=== PATIENT | female | born 1995 | race Caucasian/White ===

== ENCOUNTER 2019-07-26 15:38 | Emergency (ER) | payer OTHER, SELFPAY ==
[2019-07-26 15:49] VITALS: PULSE 85; RESP 16; TEMP 36.7; O2SAT 100; BMI 25.2
--- NOTE | 2019-07-26 16:31 | ED.BACK ---
HPI - Back Pain/Injury <DO Kathy Heaton Last Filed: 07/27/19 07:17> General Chief Complaint: Back Pain/Injury Stated Complaint: possible kidney stones Time Seen by Provider: 07/26/19 15:44 Source: patient Mode of arrival: Ambulatory Limitations: no limitations History of Present Illness HPI Narrative: Patient is a 24-year-old female who presents of bright of complaints. She currently has some left flank pain which started last night. It comes and goes nonradiating she sometimes feels nauseous. She has a actually started a week ago it started in her right flank and radiating around to her abdomen. She says that has improved but now it is more on the left side. She has no painful frequent urination. No history of kidney stones. She denies any injury no pain radiating down her legs. No numbness or tingling. MD Complaint: back pain Location: left flank Related Data Allergies Allergy/AdvReac Type Severity Reaction Status Date / Time No Known Drug Allergies Allergy Verified 07/26/19 15:49 Review of Systems <DO Kathy Heaton Last Filed: 07/27/19 07:17> Review of Systems Narrative: GENERAL: Denies chills, fatigue, malaise, fever, sweats, travel HEENT: Denies sinus pain, ear pain, sore throat, difficulty swallowing, neck pain RESPIRATORY: Denies dyspnea, cough, wheezing, hemoptysis, sputum. CARDIOVASCULAR: Denies chest pain, palpitations, orthopnea, edema GASTROINTESTINAL: See HPI : See HPI MUSCULOSKELETAL: Denies weakness, joint pain, or bony pain SKIN: No rash, no erythema, no pruritus NEUROLOGIC: Denies weakness, dizziness, headache, numbness, change in speech, confusion PSYCHIATRIC: No concerning psychosocial issues. 12 point review of systems is negative except for those stated above and HPI Patient History <DO Kathy Heaton Last Filed: 07/27/19 07:17> Medical History Patient denies medical problems (Acute) Social History Smoking Status: Current every day smoker tobacco type: e-cigarettes and vaping Substance Use Type: does not use Exam <DO Kathy Heaton Last Filed: 07/27/19 07:17> Initial Vital Signs Initial Vital Signs: Vital Signs Temperature 98.1 F 07/26/19 15:49 Pulse Rate 85 07/26/19 15:49 Respiratory Rate 16 07/26/19 15:49 Pulse Oximetry 100 07/26/19 15:49 GENERAL: Well-appearing, well-nourished and in no acute distress. HEENT: Head atraumatic,EOMI, pupils reactive, face symmetric, moist mucous membranes CARDIOVASCULAR: Regular rate and rhythm without murmurs, rubs or gallops. RESPIRATORY: Breath sounds equal bilaterally, no wheezes rales or rhonchi. ABDOMEN: Soft, tender right upper quadrant pain no guarding or rebound positive Matias sign : Mild left CVA tenderness EXTREMITIES: Normal range of motion, no clubbing or edema. Neurovascularly intact NEUROLOGICAL: Alert and oriented x4.Normal gait and speech. Cranial nerves II through XII grossly intact. SKIN: Warm, dry, no laceration, no petechiae, no rashes or lesions. <Gabriela Metcalf PA-C - Last Filed: 07/26/19 20:44> Initial Vital Signs Initial Vital Signs: Vital Signs Temperature 98.1 F 07/26/19 15:49 Pulse Rate 85 07/26/19 15:49 Respiratory Rate 16 07/26/19 15:49 Pulse Oximetry 100 07/26/19 15:49 Course <Chantale Siegel DO - Last Filed: 07/27/19 07:17> Orders Ordered: Discontinued Medications Ketorolac Tromethamine (Toradol) 30 mg IV NOW ONE Stop: 07/26/19 16:40 Last Admin: 07/26/19 17:09 Dose: 30 mg Documented by: GAMAL Ondansetron HCl (Zofran) 4 mg IV NOW ONE Stop: 07/26/19 16:40 Last Admin: 07/26/19 17:09 Dose: 4 mg Documented by: GAMAL Vital Signs Vital signs: Vital Signs - 8 hr 07/26/19 15:49 07/26/19 17:15 07/26/19 17:30 Temperature 98.1 F Pulse Rate 85 78 78 Respiratory Rate 16 16 16 Blood Pressure [Left Arm] 118/82 113/74 Pulse Oximetry 100 99 100 07/26/19 18:30 Temperature Pulse Rate 83 Respiratory Rate 16 Blood Pressure [Left Arm] 112/80 Pulse Oximetry 99 <Gabriela Metcalf PA-C - Last Filed: 07/26/19 20:44> Orders Ordered: Discontinued Medications Ketorolac Tromethamine (Toradol) 30 mg IV NOW ONE Stop: 07/26/19 16:40 Last Admin: 07/26/19 17:09 Dose: 30 mg Documented by: MEISENB Ondansetron HCl (Zofran) 4 mg IV NOW ONE Stop: 07/26/19 16:40 Last Admin: 07/26/19 17:09 Dose: 4 mg Documented by: MEISENB Vital Signs Vital signs: Vital Signs - 8 hr 07/26/19 15:49 07/26/19 17:15 07/26/19 17:30 Temperature 98.1 F Pulse Rate 85 78 78 Respiratory Rate 16 16 16 Blood Pressure [Left Arm] 118/82 113/74 Pulse Oximetry 100 99 100 07/26/19 18:30 Temperature Pulse Rate 83 Respiratory Rate 16 Blood Pressure [Left Arm] 112/80 Pulse Oximetry 99 MDM - Back Pain/Injury <Chantale Siegel DO - Last Filed: 07/27/19 07:17> Lab Data Attestation: I reviewed the patient's lab results. Result diagrams: 07/26/19 17:05 07/26/19 17:05 Labs: Lab Results 07/26/19 07/26/19 Range/Units 17:05 17:05 WBC 7.7 (4.5-11.0) X10^3/uL RBC 4.42 (4.0-5.2) X10^6/uL Hgb 13.0 (12.0-16.0) g/dL Hct 38.8 (36-46) % MCV 87.8 (80-100) fL MCH 29.5 (26-34) PG MCHC 33.6 (30-36) % RDW 13.1 (11.6-14.8) % Plt Count 244 (150-400) X10^3/uL Neut % (Auto) 51.3 (50-75) % Lymph % (Auto) 36.9 (25-40) % Mckinley % (Auto) 7.4 (3-14) % Eos % (Auto) 3.8 (2-4) % Baso % (Auto) 0.6 (0-2) % Neut # (Auto) 4000 (6996-5610) /uL Lymph # (Auto) 2900 (1414-5859) /uL Mckinley # (Auto) 600 (0-900) /uL Eos # (Auto) 300 (0-450) /uL Baso # (Auto) 0 (0-100) /uL Sodium 138 (137-145) mmol/L Potassium 3.7 (3.4-5.1) mmol/L Chloride 102 (98-107) mmol/L Carbon Dioxide 26 (22-32) mmol/L BUN 11 (7-17) mg/dL Creatinine 0.80 (0.52-1.04) mg/dL Estimated GFR > 60.0 (>60) mL/min BUN/Creatinine Ratio 13.8 (6-22) Glucose 89 (70-100) mg/dL Calcium 9.5 (8.4-10.2) mg/dL Total Bilirubin 0.5 (0.2-1.3) mg/dL AST 25 (14-36) IU/L ALT 14 (<35) IU/L Alkaline Phosphatase 71 (38-126) U/L Total Protein 8.1 (6.3-8.2) g/dL Albumin 4.7 (3.5-5.0) g/dL Globulin 3.4 (1.7-4.1) g/dL Albumin/Globulin Ratio 1.4 (1.0-2.8) Lipase 67 (23-300) U/L Point of Care Testing Test Results Negative Urine Dip Bedside Urine Glucose Negative Bedside Urine Bilirubin - Negative Bedside Urine Ketone - Negative Urine Specific [place] 1.010 Bedside Urine Occult Blood + Bedside Urine pH 7.0 Bedside Urine Protein - Negative Bedside Urine Urobilinogen - Negative Bedside Urine Nitrite - Negative Bedside Urine Leukocytes - Negative Esterase Imaging Data CT scan - abdomen: Radiologist's impression: PROCEDURE: CT KIDNEY URETER BLADDER (KUB) INDICATIONS: left flank pain TECHNIQUE: Noncontrast 5 mm thick sections acquired from the diaphragms to the symphysis. 5 mm thick coronal and sagittal reformats were then performed. For radiation dose reduction, the following was used: automated exposure control, adjustment of mA and/or kV according to patient size. COMPARISON: None. FINDINGS: Image quality: Excellent. Lung bases: Lung bases are clear. Heart size is normal. Urinary system: Both kidneys are normal in size. No kidney stones. No hydronephrosis or perinephric fat stranding. Both ureters appear non-dilated throughout their expected courses. Bladder wall thickness is normal; no calcified bladder stones. Other solid organs: Liver is normal in size. Gallbladder appears normal. Pancreas is normal in contours. Spleen is normal in size. No adrenal nodules. Peritoneum and bowel: Unenhanced bowel loops demonstrate normal wall thickness and caliber. No free fluid or air. Nodes and vessels: No retroperitoneal or mesenteric adenopathy by size criteria. Aorta and inferior vena cava are normal in caliber. Abdominal wall: No ventral hernias. Pelvis: No free pelvic fluid. No inguinal hernias or adenopathy. Bones: No suspicious bony lesions. No vertebral body compression fractures. . IMPRESSION: Normal for age, source of left sided reported flank pain is not identified. Dictated by: Rolando Mora M.D. on 07/26/2019 at 17:01 US - abdomen: Radiologist's impression: PROCEDURE: US ABDOMEN LIMITED INDICATIONS: RIGHT UPPER QUADRANT PAIN TECHNIQUE: Real-time scanning was performed of the abdominal and retroperitoneal organs, with image documentation. COMPARISON: CT KUB 07/26/2019. FINDINGS: Liver: Liver is normal in size and homogeneous in echotexture. Right anterior hepatic hyperechoic focus measuring 0.5 x 0.4 x 0.4 cm. Gallbladder: Nondilated. No stones or sludge. Normal gallbladder wall thickness. No pericholecystic fluid. Negative sonographic Matias's sign. Biliary ducts: Intrahepatic bile ducts are non-dilated. Extrahepatic bile duct caliber measures 3 mm. Normal is 6-7 mm or less in diameter, or 10 mm or less post-cholecystectomy. Pancreas: Visualized portions of the pancreas are sonographically normal. Spleen: Spleen is normal in size and homogeneous in echotexture. Right kidney: No right kidney hydronephrosis. IMPRESSION: 1. No acute cholecystitis. No gallstones. 2. Echogenic focus in the right lobe liver measuring 5 mm. This most likely represents a benign hemangioma. However, this is incompletely characterized on this exam. This can be further evaluated with liver MRI or multiphase liver CT or followed up in one year with ultrasound. Dictated by: Kirit Hayes M.D. on 07/26/2019 at 19:17 MDM Narrative Medical decision making narrative: No cause of patient's pain is identified. No UTI no kidney stone or gallbladder issue. patient feels better after toradol. feels able to go home. <Gabriela Metcalf PA-C - Last Filed: 07/26/19 20:44> Lab Data Labs: Lab Results 07/26/19 07/26/19 Range/Units 17:05 17:05 WBC 7.7 (4.5-11.0) X10^3/uL RBC 4.42 (4.0-5.2) X10^6/uL Hgb 13.0 (12.0-16.0) g/dL Hct 38.8 (36-46) % MCV 87.8 (80-100) fL MCH 29.5 (26-34) PG MCHC 33.6 (30-36) % RDW 13.1 (11.6-14.8) % Plt Count 244 (150-400) X10^3/uL Neut % (Auto) 51.3 (50-75) % Lymph % (Auto) 36.9 (25-40) % Mckinley % (Auto) 7.4 (3-14) % Eos % (Auto) 3.8 (2-4) % Baso % (Auto) 0.6 (0-2) % Neut # (Auto) 4000 (6779-8438) /uL Lymph # (Auto) 2900 (2757-7050) /uL Mckinley # (Auto) 600 (0-900) /uL Eos # (Auto) 300 (0-450) /uL Baso # (Auto) 0 (0-100) /uL Sodium 138 (137-145) mmol/L Potassium 3.7 (3.4-5.1) mmol/L Chloride 102 (98-107) mmol/L Carbon Dioxide 26 (22-32) mmol/L BUN 11 (7-17) mg/dL Creatinine 0.80 (0.52-1.04) mg/dL Estimated GFR > 60.0 (>60) mL/min BUN/Creatinine Ratio 13.8 (6-22) Glucose 89 (70-100) mg/dL Calcium 9.5 (8.4-10.2) mg/dL Total Bilirubin 0.5 (0.2-1.3) mg/dL AST 25 (14-36) IU/L ALT 14 (<35) IU/L Alkaline Phosphatase 71 (38-126) U/L Total Protein 8.1 (6.3-8.2) g/dL Albumin 4.7 (3.5-5.0) g/dL Globulin 3.4 (1.7-4.1) g/dL Albumin/Globulin Ratio 1.4 (1.0-2.8) Lipase 67 (23-300) U/L Point of Care Testing Test Results Negative Urine Dip Bedside Urine Glucose Negative Bedside Urine Bilirubin - Negative Bedside Urine Ketone - Negative Urine Specific [place] 1.010 Bedside Urine Occult Blood + Bedside Urine pH 7.0 Bedside Urine Protein - Negative Bedside Urine Urobilinogen - Negative Bedside Urine Nitrite - Negative Bedside Urine Leukocytes - Negative Esterase Discharge Plan Departure Patient Disposition: Home Clinical Impression: Back pain Qualifiers: Back pain location: low back pain Chronicity: acute Back pain laterality: left Sciatica presence: without sciatica Qualified Code(s): M54.5 - Low back pain Discharge Date/Time: 07/26/19 18:35 Activity Restrictions/Additional Instructions: *You have been diagnosed with back pain *What to do: Blood work CT scan and ultrasound today do not show cause of ear pain. No kidney stone is identified no sign of UTI or bladder infection. Gallbladder is also reassuring. *Continue to take medications as directed Motrin 800 mg every 6-8 hours if needed for pain *Follow up with your primary care provider in 2-3 days *Return to ER if you should have increasing pain with numbness tingling persistent vomiting fevers chills or any new, worsening or concerning symptoms Referrals: [facility] [Provider Group]
--- NOTE | 2019-07-26 16:38 | DI.US.S_ITS ---
PROCEDURE: US ABDOMEN LIMITED INDICATIONS: RIGHT UPPER QUADRANT PAIN TECHNIQUE: Real-time scanning was performed of the abdominal and retroperitoneal organs, with image documentation. COMPARISON: CT KUB 07/26/2019. FINDINGS: Liver: Liver is normal in size and homogeneous in echotexture. Right anterior hepatic hyperechoic focus measuring 0.5 x 0.4 x 0.4 cm. Gallbladder: Nondilated. No stones or sludge. Normal gallbladder wall thickness. No pericholecystic fluid. Negative sonographic Matias's sign. Biliary ducts: Intrahepatic bile ducts are non-dilated. Extrahepatic bile duct caliber measures 3 mm. Normal is 6-7 mm or less in diameter, or 10 mm or less post-cholecystectomy. Pancreas: Visualized portions of the pancreas are sonographically normal. Spleen: Spleen is normal in size and homogeneous in echotexture. Right kidney: No right kidney hydronephrosis. IMPRESSION: 1. No acute cholecystitis. No gallstones. 2. Echogenic focus in the right lobe liver measuring 5 mm. This most likely represents a benign hemangioma. However, this is incompletely characterized on this exam. This can be further evaluated with liver MRI or multiphase liver CT or followed up in one year with ultrasound. Dictated by: Kirit Hayes M.D. on 07/26/2019 at 19:17 Approved by: Kirit Hayes M.D. on 07/26/2019 at 19:22
--- NOTE | 2019-07-26 16:38 | DI.CT.S_ITS ---
PROCEDURE: CT KIDNEY URETER BLADDER (KUB) INDICATIONS: left flank pain TECHNIQUE: Noncontrast 5 mm thick sections acquired from the diaphragms to the symphysis. 5 mm thick coronal and sagittal reformats were then performed. For radiation dose reduction, the following was used: automated exposure control, adjustment of mA and/or kV according to patient size. COMPARISON: None. FINDINGS: Image quality: Excellent. Lung bases: Lung bases are clear. Heart size is normal. Urinary system: Both kidneys are normal in size. No kidney stones. No hydronephrosis or perinephric fat stranding. Both ureters appear non-dilated throughout their expected courses. Bladder wall thickness is normal; no calcified bladder stones. Other solid organs: Liver is normal in size. Gallbladder appears normal. Pancreas is normal in contours. Spleen is normal in size. No adrenal nodules. Peritoneum and bowel: Unenhanced bowel loops demonstrate normal wall thickness and caliber. No free fluid or air. Nodes and vessels: No retroperitoneal or mesenteric adenopathy by size criteria. Aorta and inferior vena cava are normal in caliber. Abdominal wall: No ventral hernias. Pelvis: No free pelvic fluid. No inguinal hernias or adenopathy. Bones: No suspicious bony lesions. No vertebral body compression fractures. . IMPRESSION: Normal for age, source of left sided reported flank pain is not identified. Dictated by: Rolando Mora M.D. on 07/26/2019 at 17:01 Approved by: Rolando Mora M.D. on 07/26/2019 at 17:04
[2019-07-26] MEDS: KETOROLAC 60 MG/2 ML VIAL 30 MG IV (17:09)
[2019-07-26] MEDS: ONDANSETRON 4 MG/2 ML INJ IV (17:09)
[2019-07-26 17:12] LABS: Add Manual Diff / Slide Review NO; Basophils Absolute Auto 0 /uL (0-100); Basophils Percent Auto 0.6 % (0-2); Eosinophils Absolute Auto 300 /uL (0-450); Eosinophils Percent Auto 3.8 % (2-4); Hematocrit 38.8 % (36-46); Lymphocytes Absolute Auto 2900 /uL (1100-4500); Lymphocytes Percent Auto 36.9 % (25-40); Mean Corpuscular HGB Conc 33.6 % (30-36); Mean Corpuscular Hemoglobin 29.5 PG (26-34); Mean Corpuscular Volume 87.8 fL (80-100); Monocytes Absolute Auto 600 /uL (0-900); Monocytes Percent Auto 7.4 % (3-14); Neutrophils Absolute Auto 4000 /uL (1500-7000); Neutrophils Percent Auto 51.3 % (50-75); Platelet Count 244 X10^3/uL (150-400); Red Blood Cell Count 4.42 X10^6/uL (4.0-5.2); Red Cell Distribution Width 13.1 % (11.6-14.8); White Blood Cell Count 7.7 X10^3/uL (4.5-11.0)
--- NOTE | 2019-07-26 17:14 | PC.NURSE ---
pt report left flank pain for one week, hx of kidney stones a year ago. denies injury,trauma, denies fever,vomiting, +decrease in appetite.
[2019-07-26 17:15] VITALS: BP 118/82; PULSE 78; RESP 16; O2SAT 99
--- NOTE | 2019-07-26 17:15 | PC.NURSE ---
making good eye contact, skin warm dry pink, moving all ext
[2019-07-26 17:27] LABS: Alanine Aminotransferase 14 IU/L (<35); Albumin 4.7 g/dL (3.5-5.0); Albumin Globulin Ratio 1.4 (1.0-2.8); Alkaline Phosphatase 71 U/L (38-126); Aspartate Aminotransferase 25 IU/L (14-36); BUN Creatinine Ratio 13.8 (6-22); Bilirubin Total 0.5 mg/dL (0.2-1.3); Blood Urea Nitrogen 11 mg/dL (7-17); Calcium 9.5 mg/dL (8.4-10.2); Carbon Dioxide 26 mmol/L (22-32); Chloride 102 mmol/L (98-107); Estimated Glomerular Filt Rate > 60.0 mL/min (>60); Globulin 3.4 g/dL (1.7-4.1); Glucose 89 mg/dL (70-100); HEMOLYSIS < 15 (0-50); Lipase 67 U/L (23-300); Potassium 3.7 mmol/L (3.4-5.1); Sodium 138 mmol/L (137-145); Total Protein 8.1 g/dL (6.3-8.2)
[2019-07-26 17:30] VITALS: BP 113/74; PULSE 78; RESP 16; O2SAT 100
[2019-07-26 18:30] VITALS: BP 112/80; BP 116/73; PULSE 80; PULSE 83; RESP 16; O2SAT 99
== END 2019-07-26 18:35 | disposition home or self-care (01) ==
PROVIDERS: Emergency Provider Emergency Medicine
DX: M54.5 Low back pain (principal); R10.11 Right upper quadrant pain
CPT/HCPCS: 36415; 74176; 76705; 80053; 81003; 81025; 83690; 85025; 96374; 96375; 99283; 99284; J1885; J2405

== ENCOUNTER 2021-01-31 02:16 | Emergency (ER) | payer OTHER, SELFPAY ==
[2021-01-31 02:17] VITALS: BP 113/73; PULSE 94; RESP 18; TEMP 36.9; O2SAT 100; BMI 25.6
--- NOTE | 2021-01-31 02:21 | DI.CT.S_ITS ---
PROCEDURE: CT ABDOMEN PELVIS W CON INDICATIONS: right sided abdominal pain TECHNIQUE: After the administration of intravenous contrast, 5 mm thick sections acquired from the diaphragm to the symphysis. 5 mm coronal and sagittal reformats were acquired. For radiation dose reduction, the following was used: automated exposure control, adjustment of mA and/or kV according to patient size. COMPARISON: [facility], US, US ABDOMEN LIMITED, 07/26/2019, 18:02. [facility], CT, CT KIDNEY URETER BLADDER (KUB), 07/26/2019, 16:44. FINDINGS: Image quality: Excellent. ABDOMEN: Lung bases: Lung bases are clear. Heart size is normal. Solid organs: Liver is normal in size and enhancement. Gallbladder wall is not thickened. Biliary system is non dilated. Pancreas enhances normally. Spleen is normal in size and enhancement. No adrenal nodules. Kidneys demonstrate normal size and enhancement, without hydronephrosis. Peritoneum and bowel: In this patient with this given history, scrutiny is given to the appendix. The appendix is normal, as seen on series 2, image 61. No focal right lower quadrant inflammatory changes are seen. Bowel loops demonstrate normal wall thickness and caliber. No free fluid or air. Nodes and vessels: No retroperitoneal or mesenteric adenopathy by size criteria. Aorta and inferior vena cava are normal in size. Miscellaneous: No ventral hernias. PELVIS: Genitourinary: Bladder wall thickness is normal. The uterus appears normal for age. No adnexal masses are seen. Physiologic appearing cystic changes can be seen involving the adnexal regions. A small amount of free pelvic fluid is seen, which is considered to be within physiologic limits. Miscellaneous: No inguinal hernias or adenopathy. Bones: No suspicious bony lesions. No vertebral body compression fractures. IMPRESSION: Normal appendix. Cystic changes can be seen of the ovaries, with a small amount of fluid seen within the pelvis. These findings are considered to be within physiologic limits. If it would be helpful for clinical management decision making, please consider a dedicated pelvic ultrasound for further evaluation. Note: No significant discrepancy from the preliminary report. Dictated by: Darrell Aguilera M.D. on 01/31/2021 at 10:03 Approved by: Darrell Aguilera M.D. on 01/31/2021 at 10:05
[2021-01-31 02:30] VITALS: BP 113/77; PULSE 95; RESP 16; O2SAT 99
[2021-01-31] MEDS: ONDANSETRON 4 MG/2 ML INJ IV (02:38)
[2021-01-31] MEDS: SODIUM CHLORIDE 0.9% 1,000 ML 1000 ML IV (02:39)
--- NOTE | 2021-01-31 02:55 | ED.ABDPAIN ---
HPI - Abdominal Pain General Chief Complaint: Abdominal Pain Stated Complaint: Right abdominal pain / Vomiting Time Seen by Provider: 01/31/21 02:20 Source: patient and EMS Mode of arrival: EMS Limitations: no limitations History of Present Illness HPI narrative: The patient is a 25-year-old female who presents with right-sided abdominal pain and nausea and vomiting. She states that she has had this pain in the past she has had an MRI ultrasound and x-ray but not a CT. She went out drinking where she had 5 vodka and Red Bulls which is a little abnormal for her. She went home and started vomiting however she had intense right-sided pain immediately after that requiring a closed with buried would what. It about she received Zofran and morphine which does seem to help some. She is still feeling slightly nauseated but overall a little bit better. She denies any marijuana use or daily alcohol use. MD complaint: abdominal pain Pain Consistency: intermittent Location: RLQ Quality: cramping and stabbing Radiation: none Migration to: no migration Related Data Allergies Allergy/AdvReac Type Severity Reaction Status Date / Time No Known Drug Allergies Allergy Verified 07/26/19 15:49 Review of Systems Review of Systems Narrative: GENERAL: Denies chills, fatigue, malaise, fever, sweats, travel HEENT: Denies sinus pain, ear pain, sore throat, difficulty swallowing, neck pain RESPIRATORY: Denies dyspnea, cough, wheezing, hemoptysis, sputum. CARDIOVASCULAR: Denies chest pain, palpitations, orthopnea, edema GASTROINTESTINAL: See HPI : Denies dysuria, frequency, incontinence, hematuria, urinary retention, flank pain. MUSCULOSKELETAL: Denies weakness, joint pain, or bony pain SKIN: No rash, no erythema, no pruritus NEUROLOGIC: Denies weakness, dizziness, headache, numbness, change in speech, confusion PSYCHIATRIC: No concerning psychosocial issues. 12 point review of systems is negative except for those stated above and HPI Patient History Medical History (Updated 01/31/21 @ 04:13 by Chantale Siegel DO) Patient denies medical problems Social History Smoking Status: Current every day smoker Smoking Status: Current every day smoker tobacco type: e-cigarettes and vaping alcohol intake frequency: a few times a week Substance Use Type: does not use Exam Initial Vital Signs Initial Vital Signs: Vital Signs Temperature 98.4 F 01/31/21 02:17 Pulse Rate 94 H 01/31/21 02:17 Respiratory Rate 18 01/31/21 02:17 Blood Pressure 113/73 01/31/21 02:17 Pulse Oximetry 100 01/31/21 02:17 GENERAL: 25-year-old female drowsy responding to questions commands and in no acute distress. HEENT: Head atraumatic,EOMI, pupils reactive, face symmetric, moist mucous membranes CARDIOVASCULAR: Regular rate and rhythm without murmurs, rubs or gallops. RESPIRATORY: Breath sounds equal bilaterally, no wheezes rales or rhonchi. ABDOMEN: Soft, nontender. Normoactive bowel sounds all 4 quadrants. No guarding or rebound. : No CVA tenderness EXTREMITIES: Normal range of motion, no clubbing or edema. Neurovascularly intact NEUROLOGICAL: Alert and oriented x4.Normal gait and speech. SKIN: Warm, dry, no laceration, no petechiae, no rashes or lesions. Course Orders Ordered: ED Orders 01/31/21 02:21 CT abdomen pelvis w con Stat Complete Blood Count AUTO DIFF Stat Comprehensive Metabolic Panel Stat Lipase Stat 01/31/21 02:40 Test Serum,Qual Stat Discontinued Medications Sodium Chloride (Normal Saline 0.9%) 1,000 mls @ 1,000 mls/hr IV CONT CJ Last Admin: 01/31/21 02:39 Dose: 1,000 mls/hr Documented by: BOB Ondansetron HCl (Ondansetron 4 Mg/2 Ml Inj) 4 mg IV NOW ONE Stop: 01/31/21 02:22 Last Admin: 01/31/21 02:38 Dose: 4 mg Documented by: BOB Ondansetron HCl (Ondansetron 4 Mg Odt Prepack) 1 bottle MISC SEEINSTR ONE Stop: 01/31/21 04:12 Last Admin: 01/31/21 04:16 Dose: 1 bottle Documented by: Vital Signs Vital signs: Vital Signs - 8 hr 01/31/21 02:17 01/31/21 02:30 01/31/21 03:00 Temperature 98.4 F Pulse Rate 94 H 95 H 86 Respiratory Rate 18 16 16 Blood Pressure 113/73 113/77 99/59 L Pulse Oximetry 100 99 97 01/31/21 04:17 Temperature Pulse Rate 77 Respiratory Rate 16 Blood Pressure 104/63 Pulse Oximetry 98 MDM - Abdominal Pain Lab Data Attestation: I reviewed the patient's lab results. Result diagrams: 01/31/21 02:42 01/31/21 02:42 Labs: Lab Results 01/31/21 01/31/21 01/31/21 Range/Units 02:42 02:42 02:42 WBC 5.9 (4.5-11.0) X10^3/uL RBC 3.80 L (4.0-5.2) X10^6/uL Hgb 10.8 L (12.0-16.0) g/dL Hct 33.2 L (36-46) % MCV 87.4 (80-100) fL MCH 28.4 (26-34) PG MCHC 32.5 (30-36) % RDW 12.9 (11.6-14.8) % Plt Count 226 (150-400) X10^3/uL Neut % (Auto) 74.6 (50-75) % Lymph % (Auto) 20.6 L (25-40) % [place] % (Auto) 4.4 (3-14) % Eos % (Auto) 0.0 L (2-4) % Baso % (Auto) 0.4 (0-2) % Neut # (Auto) 4400 (7321-5057) /uL Lymph # (Auto) 1200 (7220-8349) /uL [place] # (Auto) 300 (0-900) /uL Eos # (Auto) 0 (0-450) /uL Baso # (Auto) 0 (0-100) /uL Sodium 138 (137-145) mmol/L Potassium 3.2 L (3.4-5.1) mmol/L Chloride 108 H (98-107) mmol/L Carbon Dioxide 20 L (22-32) mmol/L BUN 10 (7-17) mg/dL Creatinine 0.64 (0.52-1.04) mg/dL Estimated GFR > 60.0 (>60) mL/min BUN/Creatinine Ratio 15.6 (6-22) Glucose 103 H (70-100) mg/dL Calcium 7.8 L (8.4-10.2) mg/dL Total Bilirubin < 0.1 L (0.2-1.3) mg/dL AST 25 (14-36) IU/L ALT 19 (<35) IU/L Alkaline Phosphatase 73 (38-126) U/L Total Protein 6.2 L (6.3-8.2) g/dL Albumin 3.5 (3.5-5.0) g/dL Globulin 2.7 (1.7-4.1) g/dL Albumin/Globulin Ratio 1.3 (1.0-2.8) Lipase 48 (23-300) U/L Serum , Qual Negative (Negative) Point of care testing: Urine Dip Bedside Urine Glucose Negative Bedside Urine Bilirubin - Negative Bedside Urine Ketone +/- 5 Urine Specific [place] 1.030 Bedside Urine Occult Blood ++ Bedside Urine pH 6 Bedside Urine Protein - Negative Bedside Urine Urobilinogen - Negative Bedside Urine Nitrite - Negative Bedside Urine Leukocytes - Negative Esterase Imaging Data CT scan - abdomen/pelvis: Radiologist's Impression: Preliminary report small cyst or dominant follicle in right ovary. Maximum diameter measures 1.5 cm. MDM Narrative Medical decision making narrative: Patient really does not have pain over 8 ovary seems to be much higher I do not think there is associated with her chronic ongoing recurrent issues of abdominal pain. She is overall feeling better after pain medicine and Zofran. She is found to be slightly hypokalemic which showed correct when she starts eating and drinking again. Discharge Plan Departure Patient Disposition: Home Clinical Impression: Abdominal pain Qualifiers: Abdominal location: generalized Qualified Code(s): R10.84 - Generalized abdominal pain Instructions: DI for Abdominal Pain-Adult Activity Restrictions/Additional Instructions: *You have been diagnosed with abdominal pain with nausea *What to do: Increased fluid as and food intake as tolerated. Unclear what is causing her abdominal pain it was noted that of a small ovarian cyst. Please follow-up with her primary care provider for further management and workup. *Continue to take medications as directed Zofran 4 mg every 8 hours if needed for nausea vomiting *Follow up with your primary care provider in 2-3 days *Return to ER if you should have increasing pain toe persistent vomiting or any new, worsening or concerning symptoms Referrals: [facility] [Provider Group]
[2021-01-31 03:00] VITALS: BP 99/59; PULSE 86; RESP 16; O2SAT 97
[2021-01-31 03:05] LABS: Add Manual Diff / Slide Review NO; Basophils Absolute Auto 0 /uL (0-100); Basophils Percent Auto 0.4 % (0-2); Eosinophils Absolute Auto 0 /uL (0-450); Hematocrit 33.2 % (36-46); Hemoglobin 10.8 g/dL (12.0-16.0); Lymphocytes Absolute Auto 1200 /uL (1100-4500); Lymphocytes Percent Auto 20.6 % (25-40); Mean Corpuscular HGB Conc 32.5 % (30-36); Mean Corpuscular Hemoglobin 28.4 PG (26-34); Mean Corpuscular Volume 87.4 fL (80-100); Monocytes Absolute Auto 300 /uL (0-900); Monocytes Percent Auto 4.4 % (3-14); Neutrophils Absolute Auto 4400 /uL (1500-7000); Neutrophils Percent Auto 74.6 % (50-75); Platelet Count 226 X10^3/uL (150-400); Red Cell Distribution Width 12.9 % (11.6-14.8); White Blood Cell Count 5.9 X10^3/uL (4.5-11.0)
[2021-01-31 03:14] LABS: Alanine Aminotransferase 19 IU/L (<35); Albumin 3.5 g/dL (3.5-5.0); Albumin Globulin Ratio 1.3 (1.0-2.8); Alkaline Phosphatase 73 U/L (38-126); Aspartate Aminotransferase 25 IU/L (14-36); BUN Creatinine Ratio 15.6 (6-22); Blood Urea Nitrogen 10 mg/dL (7-17); Calcium 7.8 mg/dL (8.4-10.2); Carbon Dioxide 20 mmol/L (22-32); Chloride 108 mmol/L (98-107); Estimated Glomerular Filt Rate > 60.0 mL/min (>60); Globulin 2.7 g/dL (1.7-4.1); Glucose 103 mg/dL (70-100); HEMOLYSIS < 15 (0-50); Lipase 48 U/L (23-300); Potassium 3.2 mmol/L (3.4-5.1); Sodium 138 mmol/L (137-145); Total Protein 6.2 g/dL (6.3-8.2)
[2021-01-31 03:15] LABS: Bilirubin Total < 0.1 mg/dL (0.2-1.3)
[2021-01-31 03:16] LABS: Pregnancy Test Serum,Qual Negative (Negative)
[2021-01-31] MEDS: ONDANSETRON 4 MG ODT PREPACK 1 BOTTLE MISC (04:16)
[2021-01-31 04:17] VITALS: BP 104/63; PULSE 77; RESP 16; O2SAT 98
== END 2021-01-31 04:23 | disposition home or self-care (01) ==
PROVIDERS: Emergency Provider Emergency Medicine
DX: R10.84 Generalized abdominal pain (principal); R11.2 Nausea with vomiting, unspecified
CPT/HCPCS: 36415; 74177; 80053; 81003; 83690; 84703; 85025; 96361; 96374; 99284; J2405; Q9967

== ENCOUNTER 2023-04-21 04:52 | Emergency (ER) | payer OTHER, SELFPAY ==
[2023-04-21 05:11] VITALS: BP 113/75; PULSE 100; RESP 18; TEMP 37.7; O2SAT 95; BMI 24.7
--- NOTE | 2023-04-21 05:24 | DI.US.S_ITS ---
PROCEDURE: US ABDOMEN LIMITED INDICATIONS: RUQ PAIN TECHNIQUE: Real-time scanning was performed of the abdominal and retroperitoneal organs, with image documentation. COMPARISON: [facility], CT, CT ABDOMEN PELVIS W CON, 01/31/2021, 2:34. [facility], US, US ABDOMEN LIMITED, 07/26/2019, 18:02. FINDINGS: Liver: Liver is normal in size and homogeneous in echotexture. The small hemangioma seen on the last exam is not visualized on the current exam. Gallbladder: No gallstones. No gallbladder wall thickening, pericholecystic fluid or sonographic Matias's sign. Biliary ducts: Intrahepatic bile ducts are non-dilated. Extrahepatic bile duct caliber measures 1.9 mm. Normal is 6-7 mm or less in diameter, or 10 mm or less post-cholecystectomy. Pancreas: Visualized portions of the pancreas are sonographically normal. Miscellaneous: No free abdominal fluid. IMPRESSION: Unremarkable limited abdominal ultrasound exam. Dictated by: Yo Asif M.D. on 04/21/2023 at 8:01 Approved by: Yo Asif M.D. on 04/21/2023 at 8:02
--- NOTE | 2023-04-21 05:25 | ED.GENADULT ---
HPI - General Adult <Chuckie Montelongo DO - Last Filed: 04/21/23 23:01> General Chief complaint: Abdominal Pain Stated complaint: Vomiting, back pain, abd pain and chest pain Time Seen by Provider: 04/21/23 05:17 Source: patient Mode of arrival: Ambulatory History of Present Illness HPI narrative: Patient is a 28-year-old female who woke up several hours ago with right upper quadrant abdominal pain, right-sided chest pain, right upper back pain and also vomiting. She denies any change in her bowel habits. No urinary symptoms. No prior abdominal surgeries. She states that the pain comes in waves and then she gets nauseous and then the pain seems to dissipate. No skin rashes. Has not tried anything for her symptoms prior to arrival. She has had a kidney infection in the past secondary to a urinary tract infections for which she states she did not have any symptoms. Related Data Previous Rx's Medication Instructions Recorded ondansetron 4 mg disintegrating 4 mg PO Q6H PRN nausea and 04/21/23 tablet vomiting #7 tabs Allergies Allergy/AdvReac Type Severity Reaction Status Date / Time No Known Drug Allergies Allergy Verified 07/26/19 15:49 Review of Systems <Chuckie Montelongo DO - Last Filed: 04/21/23 23:01> Constitutional Constitutional: Reports system reviewed and no additional complaints, except as documented Cardiovascular Cardiovascular: Reports system reviewed and no additional complaints, except as documented Respiratory Respiratory: Reports system reviewed and no additional complaints, except as documented Gastrointestinal Gastrointestinal: Reports system reviewed and no additional complaints, except as documented Genitourinary Genitourinary: Reports system reviewed and no additional complaints, except as documented Integumentary/Breasts Skin/Breast: Reports system reviewed and no additional complaints, except as documented Patient History <Chuckie Montelongo DO - Last Filed: 04/21/23 23:01> Medical History (Updated 04/21/23 @ 07:46 by Nicole Garcia DO) Patient denies medical problems Social History Smoking Status: Current every day smoker Smoking Status: Current every day smoker tobacco type: e-cigarettes and vaping alcohol intake frequency: a few times a week Substance Use Type: does not use Exam <Chuckie Montelongo DO - Last Filed: 04/21/23 23:01> Initial Vital Signs Initial Vital Signs: Vital Signs Temperature 99.9 F H 04/21/23 05:11 Pulse Rate 100 H 04/21/23 05:11 Respiratory Rate 18 04/21/23 05:11 Blood Pressure 113/75 04/21/23 05:11 Pulse Oximetry 95 04/21/23 05:11 Oxygen Delivery Method Room Air 04/21/23 05:11 Const General: cooperative, comfortable and No ill appearing HENNH Head: normal to inspection and normocephalic Resp Effort & Inspection: normal respiratory effort Auscultation: clear to auscultation bilaterally Cardio Rate: regular rate Rhythm: regular rhythm GI Inspection: normal to inspection and non-distended Palpation: soft, No firm, No guarding and tender (Right upper quadrant) Back/Spine/Pelvis Back: CVA tenderness right Skin General: no rashes or lesions noted Neuro General: patient alert, patient awake and moves all extremities Extrem General: normal to inspection and capillary refill normal <Nicole Garcia, DO - Last Filed: 04/22/23 08:31> Initial Vital Signs Initial Vital Signs: Vital Signs Temperature 99.9 F H 04/21/23 05:11 Pulse Rate 100 H 04/21/23 05:11 Respiratory Rate 18 04/21/23 05:11 Blood Pressure 113/75 04/21/23 05:11 Pulse Oximetry 95 04/21/23 05:11 Oxygen Delivery Method Room Air 04/21/23 05:11 Course <Chuckie Montelongo DO - Last Filed: 04/21/23 23:01> Orders Ordered: Discontinued Medications Sodium Chloride (Normal Saline 0.9%) 1,000 mls @ 1,000 mls/hr IV BOLUS ONE Stop: 04/21/23 06:17 Last Infusion: 04/21/23 06:19 Dose: 0 mls/hr Documented By: Admin: 04/21/23 05:32 Dose: 1,000 mls/hr Documented By: ADELIA Ketorolac Tromethamine (Ketorolac 30 Mg/Ml Vial) 15 mg IV NOW ONE Stop: 04/21/23 07:53 Last Admin: 04/21/23 08:01 Dose: 15 mg Documented By: MARK Ondansetron HCl (Ondansetron 4 Mg/2 Ml Inj) 4 mg IV NOW ONE Stop: 04/21/23 07:53 Last Admin: 04/21/23 08:01 Dose: 4 mg Documented By: MARK Vital Signs Vital signs: Vital Signs - 8 hr 04/21/23 05:11 04/21/23 05:38 04/21/23 05:38 Temperature 99.9 F H Pulse Rate 100 H 95 H Respiratory Rate 18 Blood Pressure 113/75 115/70 Pulse Oximetry 95 100 Oxygen Delivery Method Room Air Room Air 04/21/23 06:00 04/21/23 06:00 04/21/23 07:01 Temperature 98.5 F Pulse Rate 94 H Respiratory Rate Blood Pressure 116/69 Pulse Oximetry 100 Oxygen Delivery Method Room Air 04/21/23 07:00 04/21/23 07:00 04/21/23 07:30 Temperature Pulse Rate 91 H Respiratory Rate Blood Pressure 102/59 L 103/63 Pulse Oximetry 97 Oxygen Delivery Method 04/21/23 07:30 Temperature Pulse Rate 89 Respiratory Rate Blood Pressure Pulse Oximetry 97 Oxygen Delivery Method <Nicole Garcia DO - Last Filed: 04/22/23 08:31> Orders Ordered: Discontinued Medications Sodium Chloride (Normal Saline 0.9%) 1,000 mls @ 1,000 mls/hr IV BOLUS ONE Stop: 04/21/23 06:17 Last Infusion: 04/21/23 06:19 Dose: 0 mls/hr Documented By: Admin: 04/21/23 05:32 Dose: 1,000 mls/hr Documented By: ADELIA Ketorolac Tromethamine (Ketorolac 30 Mg/Ml Vial) 15 mg IV NOW ONE Stop: 04/21/23 07:53 Last Admin: 04/21/23 08:01 Dose: 15 mg Documented By: MARK Ondansetron HCl (Ondansetron 4 Mg/2 Ml Inj) 4 mg IV NOW ONE Stop: 04/21/23 07:53 Last Admin: 04/21/23 08:01 Dose: 4 mg Documented By: MARK Vital Signs Vital signs: Vital Signs - 8 hr 04/21/23 05:11 04/21/23 05:38 04/21/23 05:38 Temperature 99.9 F H Pulse Rate 100 H 95 H Respiratory Rate 18 Blood Pressure 113/75 115/70 Pulse Oximetry 95 100 Oxygen Delivery Method Room Air Room Air 04/21/23 06:00 08/17/23 06:00 04/21/23 07:01 Temperature 98.5 F Pulse Rate 94 H Respiratory Rate Blood Pressure 116/69 Pulse Oximetry 100 Oxygen Delivery Method Room Air 04/21/23 07:00 04/21/23 07:00 04/21/23 07:30 Temperature Pulse Rate 91 H Respiratory Rate Blood Pressure 102/59 L 103/63 Pulse Oximetry 97 Oxygen Delivery Method 04/21/23 07:30 Temperature Pulse Rate 89 Respiratory Rate Blood Pressure Pulse Oximetry 97 Oxygen Delivery Method Medical Decision Making <Chuckie Montelongo DO - Last Filed: 04/21/23 23:01> Lab Data Lab results reviewed: Yes I reviewed the patient's lab results. 04/21/23 05:25 04/21/23 05:25 Labs: Lab Results 04/21/23 04/21/23 Range/Units 05:25 05:25 WBC 11.5 H (4.5-11.0) X10^3/uL RBC 4.28 (4.0-5.2) X10^6/uL Hgb 11.8 L (12.0-16.0) g/dL Hct 35.7 L (36-46) % MCV 83.3 (80-100) fL MCH 27.6 (26-34) PG MCHC 33.2 (30-36) % RDW 14.4 (11.6-14.8) % Plt Count 224 (150-400) X10^3/uL Neut % (Auto) 90.6 H (50-75) % Lymph % (Auto) 5.5 L (25-40) % [place] % (Auto) 3.0 (3-14) % Eos % (Auto) 0.7 L (2-4) % Baso % (Auto) 0.2 (0-2) % Neut # (Auto) 87020 H (0413-8525) /uL Lymph # (Auto) 600 L (0434-2205) /uL [place] # (Auto) 300 (0-900) /uL Eos # (Auto) 100 (0-450) /uL Baso # (Auto) 0 (0-100) /uL Sodium 135 L (137-145) mmol/L Potassium 3.7 (3.4-5.1) mmol/L Chloride 102 (98-107) mmol/L Carbon Dioxide 27 (22-32) mmol/L BUN 14 (7-17) mg/dL Creatinine 1.01 (0.52-1.04) mg/dL Estimated GFR > 60 (>60) mL/min BUN/Creatinine Ratio 13.9 (6-22) Glucose 101 H (70-100) mg/dL Calcium 8.8 (8.4-10.2) mg/dL Total Bilirubin 0.6 (0.2-1.3) mg/dL AST 25 (14-36) IU/L ALT 18 (<35) IU/L Alkaline Phosphatase 69 (38-126) U/L Total Protein 7.6 (6.3-8.2) g/dL Albumin 4.2 (3.5-5.0) g/dL Globulin 3.4 (1.7-4.1) g/dL Albumin/Globulin Ratio 1.2 (1.0-2.8) Lipase 76 (23-300) U/L Point of Care Testing Test Results Negative Urine Dip Bedside Urine Glucose Negative Bedside Urine Bilirubin - Negative Bedside Urine Ketone - Negative Urine Specific [place] 1.015 Bedside Urine Occult Blood - Negative Bedside Urine pH 6.0 Bedside Urine Protein - Negative Bedside Urine Urobilinogen - Negative Bedside Urine Nitrite - Negative Bedside Urine Leukocytes - Negative Esterase Point of care testing: Point of Care Testing Test Results Negative Urine Dip Bedside Urine Glucose Negative Bedside Urine Bilirubin - Negative Bedside Urine Ketone - Negative Urine Specific [place] 1.015 Bedside Urine Occult Blood - Negative Bedside Urine pH 6.0 Bedside Urine Protein - Negative Bedside Urine Urobilinogen - Negative Bedside Urine Nitrite - Negative Bedside Urine Leukocytes - Negative Esterase Imaging Data US - abdomen: Radiologist's Impression: No acute findings MDM Narrative Medical decision making narrative: Patient does have a right upper quadrant abdominal pain. No skin rashes. LFTs and lipase unremarkable. No leukocytosis. test is negative. Urinalysis is unremarkable. No signs of infection. No blood in her urine. Patient states that her nausea is better however she is still having the right upper quadrant pain. Discussed potentially obtaining a CT scan for further evaluation to evaluate for potential other etiology to include kidney stone or potentially appendicitis versus watching and waiting to see if her symptoms worsen or improve. After this discussion the patient opted to have the CT scan. Care turned over to day provider to follow-up on CT scan and disposition. <Nicole C Mank, DO - Last Filed: 04/22/23 08:31> Lab Data Labs: Lab Results 04/21/23 04/21/23 Range/Units 05:25 05:25 WBC 11.5 H (4.5-11.0) X10^3/uL RBC 4.28 (4.0-5.2) X10^6/uL Hgb 11.8 L (12.0-16.0) g/dL Hct 35.7 L (36-46) % MCV 83.3 (80-100) fL MCH 27.6 (26-34) PG MCHC 33.2 (30-36) % RDW 14.4 (11.6-14.8) % Plt Count 224 (150-400) X10^3/uL Neut % (Auto) 90.6 H (50-75) % Lymph % (Auto) 5.5 L (25-40) % [place] % (Auto) 3.0 (3-14) % Eos % (Auto) 0.7 L (2-4) % Baso % (Auto) 0.2 (0-2) % Neut # (Auto) 82860 H (9389-7969) /uL Lymph # (Auto) 600 L (8255-1143) /uL [place] # (Auto) 300 (0-900) /uL Eos # (Auto) 100 (0-450) /uL Baso # (Auto) 0 (0-100) /uL Sodium 135 L (137-145) mmol/L Potassium 3.7 (3.4-5.1) mmol/L Chloride 102 (98-107) mmol/L Carbon Dioxide 27 (22-32) mmol/L BUN 14 (7-17) mg/dL Creatinine 1.01 (0.52-1.04) mg/dL Estimated GFR > 60 (>60) mL/min BUN/Creatinine Ratio 13.9 (6-22) Glucose 101 H (70-100) mg/dL Calcium 8.8 (8.4-10.2) mg/dL Total Bilirubin 0.6 (0.2-1.3) mg/dL AST 25 (14-36) IU/L ALT 18 (<35) IU/L Alkaline Phosphatase 69 (38-126) U/L Total Protein 7.6 (6.3-8.2) g/dL Albumin 4.2 (3.5-5.0) g/dL Globulin 3.4 (1.7-4.1) g/dL Albumin/Globulin Ratio 1.2 (1.0-2.8) Lipase 76 (23-300) U/L Point of Care Testing Test Results Negative Urine Dip Bedside Urine Glucose Negative Bedside Urine Bilirubin - Negative Bedside Urine Ketone - Negative Urine Specific [place] 1.015 Bedside Urine Occult Blood - Negative Bedside Urine pH 6.0 Bedside Urine Protein - Negative Bedside Urine Urobilinogen - Negative Bedside Urine Nitrite - Negative Bedside Urine Leukocytes - Negative Esterase Point of care testing: Point of Care Testing Test Results Negative Urine Dip Bedside Urine Glucose Negative Bedside Urine Bilirubin - Negative Bedside Urine Ketone - Negative Urine Specific [place] 1.015 Bedside Urine Occult Blood - Negative Bedside Urine pH 6.0 Bedside Urine Protein - Negative Bedside Urine Urobilinogen - Negative Bedside Urine Nitrite - Negative Bedside Urine Leukocytes - Negative Esterase MDM Narrative Medical decision making narrative: Patient does have a right upper quadrant abdominal pain. No skin rashes. LFTs and lipase unremarkable. No leukocytosis. test is negative. Urinalysis is unremarkable. No signs of infection. No blood in her urine. Patient states that her nausea is better however she is still having the right upper quadrant pain. Discussed potentially obtaining a CT scan for further evaluation to evaluate for potential other etiology to include kidney stone or potentially appendicitis versus watching and waiting to see if her symptoms worsen or improve. After this discussion the patient opted to have the CT scan. Care turned over to day provider to follow-up on CT scan and disposition. 04/21/23 Mank: Patient's labs, urine, abdominal ultrasound and CT findings were reviewed. No acute changes right kidney is grossly unremarkable measuring 9.4 cm. Plan for discharge, watchful waiting and follow up and return precautions discussed. Patient see and independently evaluated by myself. Patient has had some prior visits for similar so recommended for EGD or colonoscopy to evaluate for possible ulcers or other causes of her symptoms. Patient's workup today did not show any acute clear cause she does look like she has some anemia that was present on prior labs which appears stable. Ultrasound, CT did not show any acute changes labs otherwise showed mild leukocytosis at 11.8. Patient still has some discomfort, she is still feels quite nauseated although not actively vomiting. She would fluids but no other medications here she is agreeable to Zofran and Toradol feels comfortable with discharge home. We will give a short course of antinausea medication. Patient's symptoms were fairly abrupt onset so could have gastroenteritis but discussed other potential causes and return precautions. Discharge Plan Departure Patient Disposition: Home Clinical Impression: Abdominal pain Instructions: DI for Abdominal Pain-Adult Activity Restrictions/Additional Instructions: Follow-up for recheck if your symptoms as needed. If you have any symptoms repeatedly I would recommend follow-up for EGD or colonoscopy. Please call to set up an appointment. Your workup today shows a mild anemia, continue to follow these numbers with your physician. You may take 1 tablet of Zofran every 6 hours as needed for nausea. Prescription for Zofran sent to [facility] in [place]. Please return for fevers, persistent pain, persistent vomiting, black or bloody stools, difficulty with urination or other new or concerning changes. Prescriptions: New ondansetron 4 mg tablet,disintegrating 4 mg PO Q6H PRN (Reason: nausea and vomiting) Qty: 7 0RF Referrals: Sakshi Fernandez MD [Physician] - Stand Alone Forms: Patient Portal/API
[2023-04-21] MEDS: SODIUM CHLORIDE 0.9% 1,000 ML 1000 ML IV (05:32)
[2023-04-21 05:38] VITALS: BP 115/70; PULSE 95; O2SAT 100
[2023-04-21 05:41] LABS: Add Manual Diff / Slide Review NO; Basophils Absolute Auto 0 /uL (0-100); Basophils Percent Auto 0.2 % (0-2); Eosinophils Absolute Auto 100 /uL (0-450); Eosinophils Percent Auto 0.7 % (2-4); Hematocrit 35.7 % (36-46); Hemoglobin 11.8 g/dL (12.0-16.0); Lymphocytes Absolute Auto 600 /uL (1100-4500); Lymphocytes Percent Auto 5.5 % (25-40); Mean Corpuscular HGB Conc 33.2 % (30-36); Mean Corpuscular Hemoglobin 27.6 PG (26-34); Mean Corpuscular Volume 83.3 fL (80-100); Monocytes Absolute Auto 300 /uL (0-900); Neutrophils Absolute Auto 10400 /uL (1500-7000); Neutrophils Percent Auto 90.6 % (50-75); Platelet Count 224 X10^3/uL (150-400); Red Blood Cell Count 4.28 X10^6/uL (4.0-5.2); Red Cell Distribution Width 14.4 % (11.6-14.8); White Blood Cell Count 11.5 X10^3/uL (4.5-11.0)
[2023-04-21 05:51] LABS: Alanine Aminotransferase 18 IU/L (<35); Albumin 4.2 g/dL (3.5-5.0); Albumin Globulin Ratio 1.2 (1.0-2.8); Alkaline Phosphatase 69 U/L (38-126); Aspartate Aminotransferase 25 IU/L (14-36); BUN Creatinine Ratio 13.9 (6-22); Bilirubin Total 0.6 mg/dL (0.2-1.3); Blood Urea Nitrogen 14 mg/dL (7-17); Calcium 8.8 mg/dL (8.4-10.2); Carbon Dioxide 27 mmol/L (22-32); Chloride 102 mmol/L (98-107); Estimated Glomerular Filt Rate > 60 mL/min (>60); Globulin 3.4 g/dL (1.7-4.1); Glucose 101 mg/dL (70-100); HEMOLYSIS < 15 (0-50); Lipase 76 U/L (23-300); Potassium 3.7 mmol/L (3.4-5.1); Sodium 135 mmol/L (137-145); Total Protein 7.6 g/dL (6.3-8.2)
[2023-04-21 06:00] VITALS: BP 116/69; PULSE 94; O2SAT 100
--- NOTE | 2023-04-21 06:44 | DI.CT.S_ITS ---
PROCEDURE: CT ABDOMEN PELVIS W CON INDICATIONS: Right-sided abdominal pain TECHNIQUE: After the administration of IV contrast, axial sections were acquired from the lung bases to the pubic symphysis. Coronal and sagittal reformats were performed. For radiation dose reduction, the following was used: automated exposure control, adjustment of mA and/or kV according to patient size. COMPARISON: [facility], CT, CT ABDOMEN PELVIS W CON, 01/31/2021, 2:34. FINDINGS: Image quality: Excellent. Lung bases: Unremarkable. Heart: No significant findings. ABDOMEN: Liver: Unremarkable. Gallbladder: Unremarkable. Biliary ducts: Unremarkable. Pancreas: Unremarkable. Spleen: Unremarkable. Adrenal Glands: Unremarkable. Kidneys and Ureters: Unremarkable. Stomach and Bowel: Stomach, small bowel loops, and colon are unremarkable. Appendix is normal. Peritoneum: No abnormal intraperitoneal fluid. No free air. Ventral Wall: No hernia. Abdominal Nodes: No retroperitoneal or mesenteric adenopathy by size criteria. Vessels: Aorta and inferior vena cava are normal in size. PELVIS: Pelvic Organs: Unremarkable. Bladder: Unremarkable. Pelvic Nodes: No enlarged lymph nodes. Miscellaneous: No inguinal hernias are seen. Bones: Unremarkable. IMPRESSION: 1. No acute abnormalities in abdomen or pelvis. No significant discrepancy with the night time nanny radiology preliminary report. Dictated by: Yo Asif M.D. on 04/21/2023 at 7:59 Approved by: Yo Asif M.D. on 04/21/2023 at 8:00
[2023-04-21 07:00] VITALS: BP 102/59; PULSE 91; O2SAT 97
[2023-04-21 07:01] VITALS: TEMP 36.9
[2023-04-21 07:30] VITALS: BP 103/63; PULSE 89; O2SAT 97
[2023-04-21] MEDS: ONDANSETRON 4 MG/2 ML INJ IV (08:01)
[2023-04-21] MEDS: KETOROLAC 30 MG/ML VIAL 15 MG IV (08:01)
== END 2023-04-21 08:07 | disposition home or self-care (01) ==
PROVIDERS: Emergency Medicine; Emergency Provider Emergency Medicine
DX: R10.11 Right upper quadrant pain (principal); R07.9 Chest pain, unspecified
CPT/HCPCS: 36415; 74177; 76705; 80053; 81003; 81025; 83690; 85025; 96361; 96374; 96375; 99284; J1885; J2405; Q9967